=== PATIENT | male | born 1965 | race Caucasian/White ===

== ENCOUNTER → 2017-06-02 | Outpatient (REF) | payer BC ==
[2017-06-05 00:06] LABS: Lyme Disease IgG/IgM Antibodie <0.91 ISR (0.00-0.90); Lyme Disease IgM Ab Quantitati <0.80 index (0.00-0.79)
== END ==
LOC: M LAB REF 17:10
PROVIDERS: ATTEND Nurse Practitioner Adult Health
DX: S90.561A Insect bite (nonvenomous), right ankle, initial encounter (principal); W57.XXXA Bitten or stung by nonvenomous insect and other nonvenomous arthropods, initial encounter; X58.XXXA Exposure to other specified factors, initial encounter; Y93.9 Activity, unspecified; Y92.9 Unspecified place or not applicable; Y99.8 Other external cause status

== ENCOUNTER → 2017-06-07 | Outpatient (CLI) | payer BC ==
--- NOTE | 2017-06-07 13:07 | REP ---
Clinical: Follow-up pulmonary nodule. Comparison: 06/19/2016. Findings: The bilateral lung guzman are well-aerated, symmetric and essentially clear. Minimal right middle lobe and trace basilar fibro atelectatic changes are appreciated. 3 mm noncalcified nodule in the deep left posterior sulcus is unchanged and likely represents focal scarring. No consolidation, significant nodule or mass lesion. No pleural effusion/reaction or pneumothorax. Tracheobronchial tree is patent. Mediastinum including thoracic aorta and heart/pericardium appear normal/stable. Surrounding musculoskeletal structures are intact. Impression: 1. Stable chronic-appearing changes. No significant acute mediastinal or pleuroparenchymal process appreciated. 2. A 3 mm nodular density in the deep left sulcus remains unchanged and most compatible with scarring. Signed by Esequiel Hancock MD 06/07/2017 12:58 P
== END ==
LOC: M RAD 12:38
PROVIDERS: ATTEND Nurse Practitioner Adult Health
DX: R91.1 Solitary pulmonary nodule (principal)

== ENCOUNTER → 2018-08-05 | Outpatient (CLI) | payer BC ==
--- NOTE | 2018-08-05 18:11 | REP ---
CT CHEST WITHOUT CONTRAST: 08/05/2018. Comparison: 06/07/2017, 06/19/2016. Clinical history: Follow-up pulmonary nodule. Two previous studies with a 3 mm noncalcified nodule in the left posterior sulcus. Findings: The noncontrast images show some minor linear scarring medial segment right middle lobe with epicardial fat pad adjacent. On image 81 of series 201 there is a 4 mm noncalcified nodule in the deep sulcus left lower lobe in the lateral basal segment at the posterior axillary line. This is unchanged in size and appearance by my direct measurement compared to the two previous studies dating back 2 years. I do not see other significant or new lung nodules. There is no pleural thickening, calcified pleural plaque, mass or mass effect. Some minor apical pleural scarring, unchanged. Heart not enlarged and no pericardial thickening or effusion. A few scattered small mediastinal and hilar nodes, not pathologic size. The axillary and supraclavicular regions are unremarkable. The aorta is without aneurysm. Bone windows show thoracic marginal osteophytes, but no compression deformity or destructive lesion. The sternum, manubrium, clavicles and ribs are unremarkable. There is a small cyst in the glenoid, unchanged on that right side. Upper abdomen shows no acute findings and stable appearance. No hiatal hernia. No solid lesion in the liver or spleen. Adrenal glands normal. Pancreas intact. Impression: 1. Stable CT findings with a 4 mm noncalcified nodule deep sulcus left lower lobe. The stability for over 2 years implies a benign process. No further follow-up is needed for this. 2. There is evidence for minor fibrotic changes in the medial segment right middle lobe. No acute finding. Electronically Signed by Stephen Anaya MD 08/06/2018 01:13 P
== END ==
LOC: M RAD 12:59
PROVIDERS: ATTEND Nurse Practitioner Adult Health
DX: R91.1 Solitary pulmonary nodule (principal)

== ENCOUNTER 2018-08-28 19:29 | Emergency (ER) | payer BC, OTHER ==
[~2018-08-28] VITALS: Ht 172.7 cm; Wt 72.7 kg
[2018-08-28 19:44] VITALS: BP 142/82
--- NOTE | 2018-08-29 08:21 | REP ---
Right thumb four views : There is no fracture or dislocation. Mineralization and joint spaces are normal. There are no calcifications or foreign bodies. Impression: Negative right thumb . Electronically Signed by Josué Abreu MD 08/29/2018 08:12 A
== END 2018-08-28 20:41 | disposition home or self-care (01) ==
LOC: M ED 19:29
DX: S63.601A Unspecified sprain of right thumb, initial encounter (principal); X58.XXXA Exposure to other specified factors, initial encounter; Y92.138 Other place on military base as the place of occurrence of the external cause; Y93.F9 Activity, other caregiving; F17.200 Nicotine dependence, unspecified, uncomplicated

== ENCOUNTER 2019-02-20 17:20 | Emergency (ER) | payer OTHER ==
[~2019-02-20] VITALS: Ht 172.7 cm; Wt 84.1 kg
[2019-02-20 17:38] VITALS: BP 138/85
[2019-02-20] MEDS ORDERED: ADACEL/BOOSTRIX VACCINE (DIPHTH/PERTUSS/ACELL/TETANUS)0.5ML SYR (90715) IM ONE (18:15)
[2019-02-20 18:40] LABS: BASO % 0.4 % (0.0-1.0); EOS # 0.1 10^3/uL (0.0-0.50); EOS % 1.6 % (0.0-3.0); HEMATOCRIT 45.7 % (42.0-52.0); HEMOGLOBIN 15.8 g/dl (13.5-17.5); MEAN CORPUSCULAR HGB CONC 34.6 g/dl (32.0-36.5); MEAN CORPUSCULAR VOLUME 89.8 fl (80.0-96.0); MONO # 0.5 10^3/uL (0.0-0.8); MONO % 6.3 % (0.0-5.0); NEUTROPHILS # 4.2 10^3/uL (1.8-7.7); NEUTROPHILS % 53.4 % (36.0-66.0); PLATELET COUNT, AUTOMATED 207 10^3/uL (150-450); RED BLOOD COUNT 5.09 10^6/uL (4.30-6.10); WHITE BLOOD COUNT 7.9 10^3/uL (4.0-10.0)
[2019-02-20] MEDS ORDERED: BACI500O21 TOP (19:10)
[2019-02-20] MEDS ORDERED: IBUP-1022 PO (19:10)
[2019-02-20] MEDS ORDERED: AK-T0.3S OD (19:10)
[2019-02-20 19:12] LABS: ALBUMIN 3.9 GM/DL (3.2-5.2); ALT/SGPT 34 U/L (12-78); BILIRUBIN,TOTAL 0.4 MG/DL (0.2-1.0); BLOOD UREA NITROGEN 16 MG/DL (7-18); CALCIUM LEVEL 8.5 MG/DL (8.5-10.1); CARBON DIOXIDE LEVEL 26 MEQ/L (21-32); CHLORIDE LEVEL 109 MEQ/L (98-107); GLOMERULAR FILTRATION RATE > 60.0 (>56); GLUCOSE, FASTING 119 MG/DL (70-100); SODIUM LEVEL 140 MEQ/L (136-145); TOTAL PROTEIN 7.3 GM/DL (6.4-8.2)
[2019-02-22 10:18] LABS: HEPATITIS B SURFACE ANTIBODY POSITIVE (POSITIVE)
[2019-02-22 10:28] LABS: HEPATITIS B SURFACE ANTIGEN NEGATIVE (NEGATIVE)
[2019-02-22 10:56] LABS: HEPATITIS C VIRUS ABY INDEX 0.1 INDEX (<0.8)
== END 2019-02-20 19:34 | disposition home or self-care (01) ==
LOC: M ED 17:20
DX: S60.229A Contusion of unspecified hand, initial encounter (principal); S00.219A Abrasion of unspecified eyelid and periocular area, initial encounter; S00.81XA Abrasion of other part of head, initial encounter; Y04.8XXA Assault by other bodily force, initial encounter; Y92.238 Other place in hospital as the place of occurrence of the external cause; Y93.9 Activity, unspecified; Y99.0 Civilian activity done for income or pay; Z72.0 Tobacco use

== ENCOUNTER → 2019-07-28 | Outpatient (REF) | payer BC ==
[~2019-07-28] MED LIST: AK-T0.3S OD; BACI500O21 TOP; IBUP-1022 PO
[2019-08-01 00:06] LABS: Lyme Disease IgG/IgM Antibodie <0.91 ISR (0.00-0.90); Lyme Disease IgM Ab Quantitati <0.80 index (0.00-0.79)
== END ==
LOC: M LAB REF 16:46
PROVIDERS: ATTEND Nurse Practitioner Adult Health
DX: Z11.8 Encounter for screening for other infectious and parasitic diseases (principal); W57.XXXA Bitten or stung by nonvenomous insect and other nonvenomous arthropods, initial encounter

== ENCOUNTER → 2020-03-08 | Outpatient (CLI) | payer BC | LOC: M LABSMTC 10:05 | PROVIDERS: ATTEND Pediatrics | DX: Z20.828 Contact with and (suspected) exposure to other viral communicable diseases (principal) | CPT/HCPCS: 87486; 87581; 87633; 87798; C9803 ==

== ENCOUNTER → 2020-05-30 | Outpatient (CLI) | payer BC | LOC: M LABSMTC 09:54 | PROVIDERS: ATTEND Anesthesiology | DX: Z01.812 Encounter for preprocedural laboratory examination (principal); Z20.828 Contact with and (suspected) exposure to other viral communicable diseases ==

== ENCOUNTER 2020-06-04 07:31 | Day surgery (SDC) | payer BC ==
[~2020-06-04] VITALS: Ht 172.7 cm; Wt 83.2 kg
[~2020-06-04 07:31] MED LIST changes: +LIDOCAINE 2% 100MG/5ML SDV (FOR ANES.) As Ordered ONE; +NS 1,000 ML IV ONE; +propofoL 200 MG/20 ML VIAL As Ordered ONE
--- NOTE | 2020-06-04 10:45 | ROOR ---
Patient Name: Liu Mills Procedure Date: 06/04/2020 9:58 AM Date of : 1965 Age: 55 Room: [facility] Gender: Male Note Status: Finalized Procedure: Colonoscopy Indications: High risk colon cancer surveillance: Personal history of colonic polyps, Last colonoscopy: September 2014 Providers: Benja Edward MD Referring MD: Renea Marc NP Requesting Provider: Medicines: Monitored Anesthesia Care Complications: No immediate complications. Procedure: Pre-Anesthesia Assessment: - Prior to the procedure, a History and Physical was performed, and patient medications and allergies were reviewed. The patient is competent. The risks and benefits of the procedure and the sedation options and risks were discussed with the patient. All questions were answered and informed consent was obtained. Patient identification and proposed procedure were verified by the physician, the nurse and the cement kiln operator in the procedure room. Mental Status Examination: alert and oriented. Airway Examination: normal oropharyngeal airway and neck mobility. CV Examination: regular rate and rhythm. Prophylactic Antibiotics: The patient does not require prophylactic antibiotics. Prior Anticoagulants: The patient has taken no previous anticoagulant or antiplatelet agents. ASA Grade Assessment: II - A patient with mild systemic disease. After reviewing the risks and benefits, the patient was deemed in satisfactory condition to undergo the procedure. The anesthesia plan was to use monitored anesthesia care (MAC). Immediately prior to administration of medications, the patient was re-assessed for adequacy to receive sedatives. The heart rate, respiratory rate, oxygen saturations, blood pressure, adequacy of pulmonary ventilation, and response to care were monitored throughout the procedure. The physical status of the patient was re-assessed after the procedure. The Colonoscope was introduced through the anus and advanced to the cecum, identified by appendiceal orifice and ileocecal valve. The colonoscopy was performed without difficulty. The patient tolerated the procedure well. The quality of the bowel preparation was excellent. Findings: The perianal and digital rectal examinations were normal. A few small-mouthed diverticula were found in the sigmoid colon. A 4 mm polyp was found at 45 cm proximal to the anus. The polyp was sessile. The polyp was removed with a jumbo cold forceps. Resection and retrieval were complete. A 5 mm polyp was found in the rectum. The polyp was sessile. Biopsies were taken with a cold forceps for histology. Impression: - Diverticulosis in the sigmoid colon. - One 4 mm polyp at 45 cm proximal to the anus, removed with a jumbo cold forceps. Resected and retrieved. - One 5 mm polyp in the rectum. Biopsied. Recommendation: - Discharge patient to home. - Resume previous diet. - Continue present medications. - Await pathology results. - If the pathology report reveals adenomatous tissue, then repeat the colonoscopy for surveillance in 5 years. Benja Edward MD Benja Edward MD 06/04/2020 10:45:05 AM Electronically signed by Benja Edward MD Number of Addenda: 0 Note Initiated On: 06/04/2020 9:58 AM Estimated Blood Loss: Estimated blood loss was minimal.
[2020-06-04 11:09] VITALS: BP 121/66
== END 2020-06-04 10:50 | disposition home or self-care (01) ==
LOC: M OPP 07:31
PROVIDERS: ATTEND Surgery
DX: Z12.11 Encounter for screening for malignant neoplasm of colon (principal); Z86.010 Personal history of colon polyps; K63.5 Polyp of colon; K62.1 Rectal polyp; K57.30 Diverticulosis of large intestine without perforation or abscess without bleeding; F17.210 Nicotine dependence, cigarettes, uncomplicated

== ENCOUNTER → 2020-10-22 | Outpatient (REF) ==
[~2020-10-22] MED LIST changes: -LIDOCAINE 2% 100MG/5ML SDV (FOR ANES.) As Ordered ONE; -NS 1,000 ML IV ONE; -propofoL 200 MG/20 ML VIAL As Ordered ONE
== END ==
LOC: M LABSMTC 13:06
PROVIDERS: ATTEND Pediatrics
DX: Z20.822 Contact with and (suspected) exposure to COVID-19 (principal)